=== PATIENT | female | born 1970 | race Caucasian/White ===

== ENCOUNTER → 2022-04-30 11:48 | Outpatient (BNVA) | payer OTHER, SELFPAY | PROVIDERS: PCP Family Medicine; Visit Provider Emergency Medicine | DX: R68.89 Other general symptoms and signs (principal); J10.1 Influenza due to other identified influenza virus with other respiratory manifestations; R50.81 Fever presenting with conditions classified elsewhere; Z20.822 Contact with and (suspected) exposure to COVID-19 | CPT/HCPCS: 87400; 87426 ==